=== PATIENT | male | born 1955 | race Caucasian/White ===

== ENCOUNTER → 2020-04-13 | Outpatient (CLI) | payer MEDICARE ==
[~2020-04-13] MED LIST: HYDACE5 PO
== END | disposition home or self-care (01) ==
LOC: PLD 10:18 → LAB SHORT 10:18
DX: D03.59 Melanoma in situ of other part of trunk (principal); D48.5 Neoplasm of uncertain behavior of skin
CPT/HCPCS: 88305

== ENCOUNTER → 2020-05-05 | Outpatient (CLI) | payer MEDICARE | END | disposition home or self-care (01) | LOC: LAB SHORT 12:47 → PLD 12:47 | DX: D03.59 Melanoma in situ of other part of trunk (principal) | CPT/HCPCS: 88305 ==

== ENCOUNTER 2020-08-31 13:25 | Day surgery (SDC) | payer MEDICARE ==
[~2020-08-31] VITALS: Ht 177.8 cm; Wt 68.8 kg
--- NOTE | 2020-08-31 14:40 | NUR ---
08/31/20 1440 Jae Garcia 5 MLS NORMAL SALINE USED FOR EMR POLYPECTOMY.
--- NOTE | 2020-08-31 15:18 | NUR ---
08/31/20 1517 Jae Garcia PT C/O RIGHT EYE SORENESS IN STEP DOWN. BOTH EYES APPEAR REDDENED. DR. FALCON NOTIFIED. DR. FALCON STATES PT EYES WERE RED WHEN HE SAW HIM IN THE OFFICE. PT GIVEN COLD COMPRESS TO PLACE ON RIGHT EYE. PT NOTIFIED THAT HIS EYES WERE CLOSED WHILE SLEEPING WITH NO APPARENT REASON FOR THIS DISCOMFORT. PT STATES HE HAS EYE DROPS HE WILL USE WHEN HE GETS HOME. PER DR FALCON PT ADVISED TO FOLLOW UP WITH PCP IF EYS ARE NOT BETTER BY TOMORROW. PT STATES AN UNDERSTANDING.
== END 2020-08-31 15:28 | disposition home or self-care (01) ==
LOC: ORSCSDS 13:25
PROVIDERS: Student in an Organized Health Care Education/Training Program
PROC: 0DBL8ZX Excision of Transverse Colon, Via Natural or Artificial Opening Endoscopic, Diagnostic (ICD-10-PCS; principal; 2020-08-31 14:30)
PROC: 0DBK8ZX Excision of Ascending Colon, Via Natural or Artificial Opening Endoscopic, Diagnostic (ICD-10-PCS; principal; 2020-08-31 14:30)
PROC: 0DBH8ZX Excision of Cecum, Via Natural or Artificial Opening Endoscopic, Diagnostic (ICD-10-PCS; principal; 2020-08-31 14:30)
PROC: 0DBN8ZX Excision of Sigmoid Colon, Via Natural or Artificial Opening Endoscopic, Diagnostic (ICD-10-PCS; principal; 2020-08-31 14:30)
PROC: 0DBM8ZX Excision of Descending Colon, Via Natural or Artificial Opening Endoscopic, Diagnostic (ICD-10-PCS; principal; 2020-08-31 14:30)
DX: R19.5 Other fecal abnormalities (principal); D12.4 Benign neoplasm of descending colon; D12.2 Benign neoplasm of ascending colon; D12.0 Benign neoplasm of cecum; D12.3 Benign neoplasm of transverse colon; D12.5 Benign neoplasm of sigmoid colon; K64.8 Other hemorrhoids; F17.210 Nicotine dependence, cigarettes, uncomplicated; E78.5 Hyperlipidemia, unspecified
CPT/HCPCS: 88305; J2704; J7120

== ENCOUNTER 2021-08-30 12:49 | Day surgery (SDC) | payer MEDICARE ==
[~2021-08-30] VITALS: Ht 177.8 cm; Wt 68.0 kg
[~2021-08-30 12:49] MED LIST changes: +PRAVASTATIN SOD40 MG PO
== END 2021-08-30 14:50 | disposition home or self-care (01) ==
LOC: ORSCSDS 12:49
PROVIDERS: Student in an Organized Health Care Education/Training Program
PROC: 0DBM8ZX Excision of Descending Colon, Via Natural or Artificial Opening Endoscopic, Diagnostic (ICD-10-PCS; principal; 2021-08-30 15:00)
PROC: 0DBP8ZX Excision of Rectum, Via Natural or Artificial Opening Endoscopic, Diagnostic (ICD-10-PCS; principal; 2021-08-30 15:00)
PROC: 0DBK8ZX Excision of Ascending Colon, Via Natural or Artificial Opening Endoscopic, Diagnostic (ICD-10-PCS; principal; 2021-08-30 15:00)
PROC: 0DBH8ZX Excision of Cecum, Via Natural or Artificial Opening Endoscopic, Diagnostic (ICD-10-PCS; principal; 2021-08-30 15:00)
DX: Z86.010 Personal history of colon polyps (principal); D12.0 Benign neoplasm of cecum; D12.2 Benign neoplasm of ascending colon; D12.4 Benign neoplasm of descending colon; K62.1 Rectal polyp; K64.8 Other hemorrhoids; E78.5 Hyperlipidemia, unspecified; Z79.899 Other long term (current) drug therapy; N40.0 Benign prostatic hyperplasia without lower urinary tract symptoms
CPT/HCPCS: 88305; J0330; J0461; J2405; J2704; J7120